=== PATIENT | male | born 1950 | race Caucasian/White ===

== ENCOUNTER 2021-12-31 10:03 | Observation (INO) ==
--- NOTE | 2021-12-04 11:23 | PAT Medication Instructions ---
Medication Instructions Date of Service December 04, 2021 Home Medications aspirin 81 mg tablet,delayed release 81 mg PO QPM chlorpheniramine maleate 4 mg tablet 4 mg PO QAM coQ10 (ubiquinol) 100 mg capsule 100 mg PO QPM duloxetine 30 mg capsule,delayed release sprinkle 30 mg PO QPM duloxetine 30 mg capsule,delayed release sprinkle 60 mg PO QAM ezetimibe 10 mg tablet 5 mg PO QPM ferrous sulfate 325 mg (65 mg iron) tablet 325 mg PO QAM gabapentin 300 mg tablet 300 mg PO QAM gabapentin 300 mg tablet 600 mg PO HS hydroxyzine HCl 50 mg tablet 50 mg PO HS metoprolol succinate 25 mg tablet,extended release 24 hr 25 mg PO QPM nitroglycerin 0.4 mg sublingual tablet (Nitrostat) 0.4 mg SUBLINGUAL UD PRN omeprazole 20 mg tablet,delayed release 20 mg PO QAM rosuvastatin 20 mg sprinkle capsule 20 mg PO QPM tamsulosin 0.4 mg capsule 0.4 mg PO HS Continue as directed nitroglycerin 0.4 mg sublingual tablet (Nitrostat) 0.4 mg SUBLINGUAL UD PRN (if needed) STOP taking 2 weeks before surgery (or as soon as possible if surgery is within 2 weeks) coQ10 (ubiquinol) 100 mg capsule 100 mg PO QPM DO NOT take the morning of surgery ferrous sulfate 325 mg (65 mg iron) tablet 325 mg PO QAM chlorpheniramine maleate 4 mg tablet 4 mg PO QAM Take morning of surgery With a small sip of water, OTHERWISE NOTHING TO EAT OR DRINK AFTER MIDNIGHT: duloxetine 30 mg capsule,delayed release sprinkle 60 mg PO QAM gabapentin 300 mg tablet 300 mg PO QAM omeprazole 20 mg tablet,delayed release 20 mg PO QAM Take evening before surgery aspirin 81 mg tablet,delayed release 81 mg PO QPM (continue as normal unless told otherwise by surgeon) duloxetine 30 mg capsule,delayed release sprinkle 30 mg PO QPM ezetimibe 10 mg tablet 5 mg PO QPM gabapentin 300 mg tablet 600 mg PO HS hydroxyzine HCl 50 mg tablet 50 mg PO HS metoprolol succinate 25 mg tablet,extended release 24 hr 25 mg PO QPM rosuvastatin 20 mg sprinkle capsule 20 mg PO QPM tamsulosin 0.4 mg capsule 0.4 mg PO HS Other Notes If you have any questions please call us at [phone] or [phone] or [phone] or [phone]
--- NOTE | 2021-12-10 11:41 | Anesthesiology Consultation ---
Date of Service December 10, 2021 Assessment & Plan (1) Encounter for pre-operative examination: - will attempt to obtain most recent cardiology note. - check BSG am DOS. - preop A1c 6.8%, testing to be faxed to PCP for continuity of care. - COVID screening: Per assessment on 12/10/2021: Travel screen negative, no known COVID-19 positive contacts or current COVID-19 related symptoms in past 2 weeks. Pt vaccinated. Surgeon arranging preop COVID testing, scheduled 12/27/2021. Awaiting results. Chart Review Chart Review: Pending: Refer to Additional Notes / Consult section and Patient seen in Pre Admission Testing Teaching & Discussion Pre-Anesthesia Teaching/Discussion Notes: Instructed NPO after midnight before surgery, except medications with 15 cc of water. Medication instructions provided according to the PAT guidelines. History Surgery Operation Date: 12/31/21 09:55 Proposed Procedures p Left Total Knee Arthroplasty - Dedrick Marie DO Height/Weight Height: 6 ft 2 in Weight: 116.7 kg Allergies Allergy/AdvReac Type Severity Reaction Status Date / Time codeine Allergy Intermediate Vomiting Verified 12/03/21 14:04 prazosin AdvReac Unknown DIZZY Verified 12/03/21 14:04 Medications Home Medications Medication Instructions Recorded Confirmed Last Taken aspirin 81 mg tablet,delayed 81 mg PO QPM 12/03/21 12/03/21 Unknown release chlorpheniramine maleate 4 mg 4 mg PO QAM 12/03/21 12/03/21 Unknown tablet coQ10 (ubiquinol) 100 mg capsule 100 mg PO QPM 12/03/21 12/03/21 Unknown duloxetine 30 mg capsule,delayed 30 mg PO QPM 12/03/21 12/03/21 Unknown release sprinkle duloxetine 30 mg capsule,delayed 60 mg PO QAM 12/03/21 12/03/21 Unknown release sprinkle ezetimibe 10 mg tablet 5 mg PO QPM 12/03/21 12/03/21 Unknown ferrous sulfate 325 mg (65 mg 325 mg PO QAM 12/03/21 12/03/21 Unknown iron) tablet gabapentin 300 mg tablet 300 mg PO QAM 12/03/21 12/03/21 Unknown gabapentin 300 mg tablet 600 mg PO HS 12/03/21 12/03/21 Unknown hydroxyzine HCl 50 mg tablet 50 mg PO HS 12/03/21 12/03/21 Unknown metoprolol succinate 25 mg 25 mg PO QPM 12/03/21 12/03/21 Unknown tablet,extended release 24 hr nitroglycerin 0.4 mg sublingual 0.4 mg SUBLINGUAL UD PRN 12/03/21 12/03/21 Unknown tablet (Nitrostat) omeprazole 20 mg tablet,delayed 20 mg PO QAM 12/03/21 12/03/21 Unknown release rosuvastatin 20 mg sprinkle capsule 20 mg PO QPM 12/03/21 12/03/21 Unknown tamsulosin 0.4 mg capsule 0.4 mg PO HS 12/03/21 12/03/21 Unknown Past Medical History Medical History (Updated 12/10/21 @ 15:43 by Lisa Mcleod PA-C) Anxiety CAD (coronary artery disease) s/p 2 stents, LAD and Cx, 2016; residual disease: LAD= eccentric 30% stenosis proximal segment. Moderately calcified 100% stenosis mid segment, no perfusion Thomas flow. Long, eccentric and serial 80% stenosis in proximal segment of 1st diagonal LAD Circumflex = diffusely diseased, eccentric and tubular 20% in the ostial segment RCA = eccentric and tubular 75% stenosis proximal segment. Diffuse and eccentric 30% stenosis mid segment of RCA. Tubular and eccentric 40% stenosis distal RCA. LM normal. Chronic kidney disease STAGE 2A-F/U PCP Depression Diverticular disease denies h/o diverticulitis Elevated hemoglobin A1c A1c 6.8% pre-op GERD (gastroesophageal reflux disease) controlled, stable per pt Heart failure EF 35-40% 01/04/17 echo Hypertension controlled, stable per pt Myocardial Infarction 12/2016 OCD (obsessive compulsive disorder) Post traumatic stress disorder Postoperative nausea and vomiting Sleep apnea CPAP-compliant Patient denies h/o stroke, seizures, heart failure, blood clots or blood transfusions. Exercise / Class Metabolic Activity II 4-5 Yardwork/Stairs/Walk up hill (denies CP or SOB with 1 FOS) Past Family History Family History Brother Family history of diabetes mellitus Past Surgical History Surgical History (Updated 12/10/21 @ 15:39 by Lisa Mcleod PA-C) Cancer EXCISION OF BCC AND SQUAMOUS CELL-LEFT EAR, R WRIST,ARM Cancer EXCISION OF MELANOMA BACK OF NECK H/O left knee surgery lateral meniscectomy H/O right wrist surgery FUSION History of anesthesia reaction WITH LAST BACK SURGERY-06/2021-GROGGY FOR 4 DAYS-"DIDN'T WANT TO WAKE UP, THEY KEPT TRYING TO GET ME TO GET AWAKE"-[facility] History of back surgery X 3 INCLUDING LAMINECTOMY History of cardiac cath 12/31/16: LM = angiographically normal LAD= eccentric 30% stenosis proximal segment. Moderately calcified 100% stenosis mid segment, no perfusion Thomas flow. Long, eccentric and serial 80% stenosis in proximal segment of 1st diagonal LAD Circumflex = diffusely diseased, eccentric and tubular 20% in the ostial segment RCA = eccentric and tubular 75% stenosis proximal segment. Diffuse and eccentric 30% stenosis mid segment of RCA. Tubular and eccentric 40% stenosis distal RCA Summary: Successful one vessel stenting of the LAD and diagonal branch History of cataract surgery R/L History of colonoscopy MULTIPLE-WITH POLYPECTOMY History of esophagogastroduodenoscopy (EGD) History of herniorrhaphy UMBILICAL History of mastectomy BILAT, hx gynecomastia History of shoulder surgery R-distal clavicle/L-bone spur History of surgery urethroplasty d/t stricture Nausea and vomiting after administration of anesthetic agent Past Anesthesia History No Family Hx of Anesthesia Complications and Other (slow to wake) History of PONV No Hx of Motion Sickness and History of PONV (denies needing scop patch) Social History Smoking Status: Never smoker Do You Dip or Chew Tobacco: No Hx Alcohol Use: Yes alcohol intake frequency: holidays/special occasions only Hx Substance Use: No Review of Systems Patient denies chest pain, shortness of breath, dyspnea on exertion, fever, chills, cough, wheezing, or palpitations. Physical Exam Vital Signs Vitals BP 118/72 P 88 TEMP 98.6 SP02 99% on RA RESP 17 Physical Full cervical extension range of motion without pain TMD 3 finger breadths Mallampati Score 2 Dentition: intact, several missing teeth, several caps/crowns-front upper, bridge lower left side; denies chipped or loose teeth, implants Lungs: normal respiratory effort. Clear throughout to auscultation, no adventitious breath sounds Cardiac: regular rate and rhythm, no murmurs noted Carotid arteries: negative bruit bilat Lab Results Anesthesia Preop Results Results Anesthesia Widget: WBC 9.52 K/uL (4.8-10.8) 12/10/21 Hgb 13.0 g/dL (14.0-18.0) L 12/10/21 Hct 41.0 % (42-52) L 12/10/21 Plt 275 K/uL (130-400) 12/10/21 Na 138 mmol/L (136-145) 12/10/21 K 4.2 mmol/L (3.5-5.1) 12/10/21 Cl 103 mmol/L (98-107) 12/10/21 CO2 27 mmol/L (21-32) 12/10/21 BUN 22 mg/dl (6-23) 12/10/21 Creat 1.40 mg/dl (0.6-1.4) 12/10/21 Glucose Level 165 mg/dl (70-99(Fasting)) H 12/10/21 PT 10.2 Seconds (9.0-12.0) 12/10/21 PTT 25.2 Seconds (21.0-31.0) 12/10/21 INR 1.0 (0.9-1.1) 12/10/21 HA1c 6.8 % (4.5-5.6) H 12/10/21 Urine Color Yellow 12/10/21 Urine Appearance Clear (Clear) 12/10/21 Urine pH 5.5 (4.5-7.5) 12/10/21 Urine Specific [place] 1.026 (1.000-1.030) 12/10/21 Urine Protein 1+ (Negative) H 12/10/21 Urine Glucose (UA) Negative (Negative) 12/10/21 Urine Ketones Trace (Negative) H 12/10/21 Urine Blood Negative (Negative) 12/10/21 Urine Nitrite Negative (Negative) 12/10/21 Urine Bilirubin Negative (Negative) 12/10/21 Urine Urobilinogen Negative (Negative) 12/10/21 Urine Leukocyte Esterase Trace (Negative) H 12/10/21 Urine WBC (Auto) 10-30 /hpf (0-5) H 12/10/21 Urine RBC (Auto) 5-10 /hpf (0-4) H 12/10/21 Urine Hyaline Casts (Auto) 1-5 /lpf (0-5) 12/10/21 Urine Epithelial Cells (Auto) 10-20 /lpf (0-5) H 12/10/21 Urine Bacteria (Auto) Negative (Negative) 12/10/21 Blood Type A Positive 12/10/21 Antibody Screen NEGATIVE 12/10/21 Testing Electrocardiogram Date: 12/10/21 NSR, rate 85 bpm Septal infarct, age undetermined Nonspecific T wave abnormality 11/20/21 EKG NSR, rate 94 bpm Septal infarct (cited on or before 11/20/21) Prolonged QT (QT/QTc: 418/522) Chest X-Ray Date: 12/10/21 PA and lateral chest radiographs are obtained. No prior studies are available for comparison at the time of dictation. The top normal for projection noting atherosclerotic calcification of the thoracic aorta. There is mild elevation of the right hemidiaphragm and bibasilar atelectasis. A calcified granuloma is noted at the right apex. The lungs and pleural spaces are otherwise clear. There is no pneumothorax. The skeletal structures are osteopenic. The bony thorax appears intact. IMPRESSION: No active disease in the chest. Echocardiogram Date: 01/04/17 EF 35-40% Large apical area of LV hypokinesis with an akinetic true apex No significant aortic valve and mitral valve dysfunction Stress Test Date: 02/11/17 Exercise MPHR > 85% METS 4 EKG stress test negative for ischemia Old anterior [place] Severely decreased functional capacity with exercise time Cardiac Catheterization Date: 12/31/16 LM = angiographically normal LAD= eccentric 30% stenosis proximal segment. Moderately calcified 100% stenosis mid segment, no perfusion Thomas flow. Long, eccentric and serial 80% stenosis in proximal segment of 1st diagonal LAD Circumflex = diffusely diseased, eccentric and tubular 20% in the ostial segment RCA = eccentric and tubular 75% stenosis proximal segment. Diffuse and eccentric 30% stenosis mid segment of RCA. Tubular and eccentric 40% stenosis distal RCA Summary: Successful one vessel stenting of the LAD and diagonal branch
--- NOTE | 2021-12-10 13:32 | History & Physical Report ---
Date of Service December 10, 2021 date of surgery: 12/31/21 Procedure: Left Total Knee Arthroplasty Surgeon: Dedrick Marie Assessment & Plan (1) Arthritis of knee, left: Plan: Risks and benefits of procedure discussed in detail today, patient would like to proceed with a left total knee replacement at [facility] as scheduled. will obtain medical clearance from Dr Lemus prior to surgery as well as obtain PATs at [facility]. Will place on ASA 81mg po bid x 1 month post op, f/u 2 weeks post op for routine post-operative care and x-ray, sooner if having any problems. will make arrangements for HHPT at the time of discharge. At this point in time, has failed conservative measures and would like to proceed with surgical intervention. He states he is able to take Oxycodone as well. The risks and benefits have been discussed including, but not limited to, risk of infection, nerve injury, stiffness, loss of motion, failure to improve, etc. Reasonable outcomes and options of treatment were discussed. An explanation of appropriate alternatives to the procedure that may be advantageous were discussed and their risks and benefits, as well as the risks and benefits of not proceeding with treatment. I offered to answer any additional inquiries co ncerning the treatment involved. All the patient's questions were answered. The patient is agreeable, understanding of the treatment plan and alternatives, and wishes to proceed with the treatment plan. History of Present Illness Chief Complaint: left knee pain Primary Care Provider: Devynestevan Rolnost Osborne is a 71 year old male who complains of left knee pain, presents for pre- op evaluation prior to a left total knee replacement by Dr Marie at [facility]. He complains of pain decreased range of motion and stiffness in the left knee. Currently the patient states that the symptoms are moderate-severe and is described as aching, sharp and throbbing. His symptoms are aggravated by ascending stairs, daily activities, first steps while awake walking. Prior NSAIDs include IBU and Aleve. he has been treated with previous cortisone and visco injections in the past without much relief. he had prior meniscectomy over 30 years ago as well. Allergies Allergy/AdvReac Type Severity Reaction Status Date / Time codeine Allergy Intermediate Vomiting Verified 12/03/21 14:04 prazosin AdvReac Unknown DIZZY Verified 12/03/21 14:04 Home Medications Medication Instructions Recorded Confirmed Type aspirin 81 mg tablet,delayed 81 mg PO QPM 12/03/21 12/03/21 History release chlorpheniramine maleate 4 mg 4 mg PO QAM 12/03/21 12/03/21 History tablet coQ10 (ubiquinol) 100 mg capsule 100 mg PO QPM 12/03/21 12/03/21 History duloxetine 30 mg capsule,delayed 30 mg PO QPM 12/03/21 12/03/21 History release sprinkle duloxetine 30 mg capsule,delayed 60 mg PO QAM 12/03/21 12/03/21 History release sprinkle ezetimibe 10 mg tablet 5 mg PO QPM 12/03/21 12/03/21 History ferrous sulfate 325 mg (65 mg 325 mg PO QAM 12/03/21 12/03/21 History iron) tablet gabapentin 300 mg tablet 300 mg PO QAM 12/03/21 12/03/21 History gabapentin 300 mg tablet 600 mg PO HS 12/03/21 12/03/21 History hydroxyzine HCl 50 mg tablet 50 mg PO HS 12/03/21 12/03/21 History metoprolol succinate 25 mg 25 mg PO QPM 12/03/21 12/03/21 History tablet,extended release 24 hr nitroglycerin 0.4 mg sublingual 0.4 mg SUBLINGUAL UD PRN 12/03/21 12/03/21 History tablet (Nitrostat) omeprazole 20 mg tablet,delayed 20 mg PO QAM 12/03/21 12/03/21 History release rosuvastatin 20 mg sprinkle capsule 20 mg PO QPM 12/03/21 12/03/21 History tamsulosin 0.4 mg capsule 0.4 mg PO HS 12/03/21 12/03/21 History Past Med/Surg History Medical History Anxiety CAD (coronary artery disease) s/p 2 stents 2016 Chronic kidney disease STAGE 2A-F/U PCP Depression Diverticular disease denies h/o diverticulitis GERD (gastroesophageal reflux disease) controlled, stable per pt Hypertension controlled, stable per pt Myocardial Infarction 12/2016 OCD (obsessive compulsive disorder) Post traumatic stress disorder Postoperative nausea and vomiting Sleep apnea CPAP-compliant Surgical History Cancer EXCISION OF BCC AND SQUAMOUS CELL-LEFT EAR, R WRIST,ARM Cancer EXCISION OF MELANOMA BACK OF NECK H/O left knee surgery lateral meniscectomy H/O right wrist surgery FUSION History of anesthesia reaction WITH LAST BACK SURGERY-06/2021-GROGGY FOR 4 DAYS-"DIDN'T WANT TO WAKE UP, THEY KEPT TRYING TO GET ME TO GET AWAKE"-[facility] History of back surgery X 3 INCLUDING LAMINECTOMY History of cardiac cath 12/2016 2 STENTS [facility] History of cataract surgery R/L History of colonoscopy MULTIPLE-WITH POLYPECTOMY History of esophagogastroduodenoscopy (EGD) History of herniorrhaphy UMBILICAL History of mastectomy BILAT, hx gynecomastia History of shoulder surgery R-distal clavicle/L-bone spur History of surgery urethroplasty d/t stricture Nausea and vomiting after administration of anesthetic agent Family History Brother Family history of diabetes mellitus Social History Smoking Status: Never smoker Second Hand Exposure: Yes ( A CHILD); Hx Alcohol Use: Yes Hx Substance Use: No Preferred Language: Telugu Communication Ability: Effective Warehouse Loader Required: No Beliefs That Will Affect Care: Anabaptism Anabaptism Beliefs: HOLINESS Current Living Situation: Spouse current occupational status: retired Feels Safe at Home: Yes Assistive Devices: Glasses Review of Systems Review of Systems: All systems reviewed & are unremarkable except as noted in HPI & below Constitutional: no fever, no chills and no sweats Respiratory: no cough and no dyspnea Cardiovascular: no chest pain, no dyspnea and no orthopnea Gastrointestinal: no abdominal pain, no nausea and no vomiting Musculoskeletal: as per Subjective / HPI Physical Exam Physical Exam: HT: 6ft 2in WT: 116.7kg Constitutional: WD/WN, vitals as above no acute distress Respiratory: normal respiratory effort, lungs clear to auscultation no respiratory distress, no labored breathing and does not use accessory muscles Cardiovascular: RRR, no murmur, no edema Gastrointestinal (Abdomen): normal bowel sounds, soft, nontender, no hepatosplenomegaly Musculoskeletal: Knee: + knee abnormal to inspection (LEFT KNEE: ), + effusion (+1 effusion), + limited ROM of knee (ROM 0/3/110), + knee ROM with crepitation, + joint line tenderness (medial joint line) and + Ronel's sign positive; no deformity, no skin erythema, no ecchymosis, no valgus laxity, no varus laxity, anterior drawer test negative, Rakesh's sign negative and pivot shift test negative Results & Data Results & Data ([facility]) Diagnostic Findings Left Knee X-ray: left knee series confirm advanced degenerative changes to the left knee, greatest medial compartments and patellofemoral joint, showing joint space narrowing, osteophyte formation and subchondral sclerosis. no acute bony pathology noted.
[~2021-12-31 10:03] MED LIST: ACETAMINOPHEN 500 MG TAB PO SCH; BUPIVACAINE 0.5 % 5 MG/1 ML PF 10ML VIAL ONE; CeleBREX 200 MG CAP PO SCH; EPINEPHrine INJ 1 MG/ML AMP ONE; FAMOTIDINE 20 MG TAB PO SCH; GABAPENTIN 300 MG CAP PO SCH; LR 15ML/HR IV SCH; METOCLOPRAMIDE HCL 10 MG TABLET PO SCH; ROPIVACAINE 0.5% 5 MG/ML 30 ML VIAL ONE; ROPIVACAINE 0.5% HCL/PF 150 MG, BUPIVACAINE 0.75% MPF 20 ML, EPINEPHrine 30MG/30ML (OR ... INFIL SCH; TRANEXAMIC ACID 1,000 MG **IV Intra-op IV SCH; TRANEXAMIC ACID 1,000 MG **IV Pre-op IV SCH; ceFAZolin 2000MG 2,000 MG/15 ML SYR IV SCH
[2021-12-31] MEDS ORDERED: PHENYLEPHRINE 100MCG/ML 5ML SYR IV PRN (10:51)
[2021-12-31] MEDS ORDERED: ATROPINE SULFATE 0.1 MG/ML 10ML SYR IV PRN (10:51)
[2021-12-31] MEDS ORDERED: ePHEDrine sulfate 50 MG/ML AMP IV PRN (10:51)
[2021-12-31] MEDS ORDERED: LABETALOL HCL IV 5 MG/ML 20ML IV PRN (10:51)
[2021-12-31] MEDS ORDERED: fentaNYL citrate 100 MCG/2 ML VIAL IV PRN (10:51)
[2021-12-31] MEDS ORDERED: ONDANSETRON INJ 2 MG/ML 2 ML VIAL IV PRN ×2 (10:51→17:40)
--- NOTE | 2021-12-31 11:21 | History & Physical Bridge Note ---
Date of Service December 31, 2021 History & Physical Bridge Note I have examined the patient, reviewed the History & Physical and in the interval since the performance of the History & Physical I have noted the following changes of clinical significance: no changes noted
[2021-12-31] MEDS ORDERED: TRANEXAMIC ACID / 0.7% NACL 1000MG/100ML BAG IV ONE (11:49)
[2021-12-31] MEDS ORDERED: TRANEXAMIC ACID 100 MG/ML 10 ML VIAL IV ONE (13:00)
[2021-12-31] MEDS ORDERED: PROPOFOL IV EMULSION 10 MG/ML 20 ML VIAL IV ONE (13:18)
[2021-12-31] MEDS ORDERED: MIDAZOLAM HCL 1 MG/ML 2ML VIAL ONE (13:18)
[2021-12-31] MEDS ORDERED: fentaNYL citrate 100 MCG/2 ML VIAL ONE (13:18)
[2021-12-31] MEDS ORDERED: LIDOCAINE 2% MPF LOCAL 5 ML VIAL INFIL ONE (13:18)
[2021-12-31] MEDS ORDERED: ORTHO JOINT ANESTHETIC ONE (13:25)
[2021-12-31] MEDS ORDERED: PHENYLEPHRINE 100MCG/ML 5ML SYR ONE (14:19)
--- NOTE | 2021-12-31 15:16 | Operative Report ---
Post Operative Report Pre & Post Diagnosis Operation Date: 12/31/21 13:05 Pre-Op Diagnosis: Osteoarthritis of Left Knee Post-Op Diagnosis: Osteoarthritis of Left Knee I identified the patient and participated in the time-out.: Yes Procedure Operation Date: 12/31/21 13:05 Actual Procedures p Left Total Knee Arthroplasty(Left) utilizing [employer] by [employer] journey 2 patient matched total knee arthroplasty size femur 7 tibia 7 polytwelve patella 35 oval- Dedrick Marie DO Surgeon Dedrick Marie DO Teletype Installer KANDICE Truong Estimated Blood Loss 5 Findings Consistent with Post-Op Diagnosis Patient resents severe stage tricompartmental DJD with varus alignment subchondral sclerosis marginal osteophytes subchondral cystic changes Specimens Bone and cartilage Drains Medium bore Hemovac Anesthesia Type MAC Spinal Regional Complications none Disposition Accompanied Patient To Recovery: No Disposition: Recovery Room Indications Patient presents with severe end-stage DJD after failed attempted conservative management clinic physical therapy anti-inflammatories relative rest activity modification corticosteroid injection viscosupplementation Description of Procedure After proper prepping and draping of the left lower extremity anterior midline incision was made over the region of the extensor extensor mechanism after meticulous hemostasis was obtained and maintained in subcutaneous tissues a medial parapatellar incision was made The patella was subluxed lateralward the medial lateral gutter were cleaned from any hypertrophic synovitis and scar tissue of the distal femoral block was placed and the distal femoral osteotomy cut was made subsequently the chamfers anterior and posterior osteotomy cuts were made utilizing the 4-in-1 block the tibia was subsequently subluxed anteriorward medial and ateral meniscal remnants were excised in their entirety remnants of the anterior and posterior cruciate ligaments were excised in their entirety excellent exposure of the proximal tibia was obtained the tibial osteotomy guide was placed on the proximal tibial osteotomy cut was made once again the knee was irrigated with copious amounts of sterile saline solution the patella was subsequently everted lateralward thickened scar tissue around the patella was removed the patella was subsequently cut utilizing a freehand technique and was drilled prepared for final preparation and placement of patella socially flexion-extension gaps were checked and the equal and symmetric trials were placed to the appropriate femoral and tibial trials with poly-spacer being placed for equal flexion and extension gaps and full range of motion including extension to 0 and flexion to 140 the trial components after having been taken to recovery range of motion was subsequently removed meticulous hemostasis was obtained and maintained subsequently a knee block injection of joint cocktail including ropivacaine 0.5% 150 mg. Bupivacaine 0.5% epinephrine 1-200,030 mL's toradol 30 mg dexamethasone 4 mg ketamine 10 mg clonidine 100 micrograms normal saline solution 30 mg was infiltrated into the soft tissues of the posterior knee medial lateral gutters and periosteal synovium special attention was paid to protect neurovascular structures at all times subsequently trial components having been removed the knee was irrigated with sterile saline solution. debris was removed the proximal tibia was subsequently prepared and was made ready for the placement of the tibial component tibial component was also cemented and tamped into position the femoral component was subsequently placed and cemented in the position the patellar component was subsequently cemented in position because hemostasis once again obtained and maintained wound having been thoroughly irrigated with debridement and debridement lavage was performed as well as a medial parapatellar incision closed with #1 Vicryl in interrupted fashion subcutaneous was closed with #2 Vicryl skin was closed with skin clips. PA-C was necessary for prepping and drapping as well as wound closure of deep fascia Sub cutaneous tissue and skin and was necessary for the case. A sterile compressive dressing was placed patient was taken to recovery in stable condition of report dictated by Frank I attest to the content of the Intraoperative Record and any orders documented therein. Any exceptions are noted below.Due to the complex nature of the procedure, the entire surgery was performed with the operational assistance of KANDICE Truong. The academic assistant, under direct supervision, was involved in the actual performance of all aspects of the surgical procedure including hemostasis, tissue retraction and incision, instrument management, patient positioning, and wound closure. I attest to the content of the Intraoperative Record and any orders documented therein. Any exceptions are noted below.
[2021-12-31] MEDS ORDERED: ePHEDrine sulfate 50 MG/ML SYR ONE (15:23)
--- NOTE | 2021-12-31 16:12 | XRay Report ---
XR knee LT 1 or 2V routine CLINICAL HISTORY: Postoperative evaluation. COMPARISON: None FINDINGS: Alignment of the total left knee arthroplasty is anatomic. There is no periprosthetic frac ture or unexpected radiopaque body. Skin heather and drains are in place. IMPRESSION: Expected findings following total left knee arthroplasty. ACT 112: Negative or not required by law. Electronically signed by: Blu Ladd M.D. 12/31/2021 4:11 PM
--- NOTE | 2021-12-31 17:17 | Anesthesiology Progress Note ---
Date of Service December 31, 2021 Anesthesia Post Procedure Vital Signs Vital Signs: Temp Pulse Resp BP BP Pulse Ox O2 Del Method 12/31/21 17:05 71 18 138/60 95 Room Air 12/31/21 16:25 73 15 133/74 93 Room Air 12/31/21 16:55 72 20 133/68 94 Room Air 12/31/21 16:45 97.7 F 76 18 127/79 93 Room Air 12/31/21 16:35 76 22 134/68 95 Room Air 12/31/21 16:15 73 14 141/66 H 93 Room Air 12/31/21 16:05 74 17 140/63 95 Room Air 12/31/21 15:55 74 16 131/73 99 Room Air 12/31/21 15:47 97.0 F L 76 15 135/69 99 Room Air 12/31/21 10:46 98.4 F 78 20 152/84 H 97 Room Air Pain Intensity Left Knee: Pain Intensity: 0 Transfer of Care Handoff Completed per policy Notes Mental Status: alert / awake / arousable and participated in evaluation Patient Amnestic to Procedure: Yes Nausea / Vomiting: adequately controlled Pain: adequately controlled Airway Patency, RR, SpO2: stable & adequate BP & HR: stable & adequate Hydration State: stable & adequate Neuraxial Anesthesia: was administered and sensory block is resolving Anesthetic Complications: no major complications apparent and Pt Satisfied with anesthetic care
[2021-12-31] MEDS ORDERED: bisacodyL 10 MG SUPP PR PRN (17:40)
[2021-12-31] MEDS ORDERED: NITROGLYCERIN SL 0.4 MG/TAB TAB SL PRN (17:40)
[2021-12-31] MEDS ORDERED: diphenhydrAMINE Capsule 25 MG CAP PO PRN (17:40)
[2021-12-31] MEDS ORDERED: NALOXONE HCL 0.4 MG/1 ML VIAL/CARP IV PRN (17:40)
[2021-12-31] MEDS ORDERED: METOCLOPRAMIDE HCL INJ 5 MG/ML 2 ML VIAL IV PRN (17:40)
[2021-12-31] MEDS ORDERED: SODIUM CHLORIDE 0.9% 1000ML 1,000 ML IV SCH (17:40)
[2021-12-31] MEDS ORDERED: oxyCODONE HCL IR 5 MG TAB (IMMEDIATE RELEASE) PO PRN (17:40)
[2021-12-31] MEDS ORDERED: MAGNESIUM HYDROXIDE SUSP 30 ML UDC PO PRN (17:40)
[2021-12-31] MEDS ORDERED: HYDROmorphone INJ 1 MG/ML SYRINGE IV PRN (17:40)
[2021-12-31] MEDS ORDERED: FERROUS SULFATE 325 MG TAB PO SCH (18:00)
[2021-12-31] MEDS: KETOROLAC TROMETHAMINE 15 MG/ML VIAL IV SCH ×2 (18:24→22:29)
--- NOTE | 2021-12-31 19:59 | Hospitalist Consultation ---
Date of Consultation December 31, 2021 Assessment & Plan (1) Arthritis of knee, left: S/p left TKA with Dr. Marie on 12/31. No complications noted in the operative report. EBL was 5 mL. - Post-operative care per primary team - DVT ppx: ASA 81 mg PO BID - At risk for expected blood loss anemia - Can give PRBCs or Venofer as indicated. (2) CAD (coronary artery disease): Hx of LHC and stents. No chest pain at present. - Continue ASA as above - Continue beta-india, statin (3) Heart failure: Chronic systolic heart failure with EF 35 - 40% on echo in 12/2016 after an anterior TX. No further echos in our system, but patient reports most recent echo had EF of ~60%. - Will stop IV fluids to avoid volume overload - Closely monitor volume status of patient - Low threshold to give a few doses of Lasix if needed - Meds as above (4) Hypertension: BP is 130/75. - Continue above meds (5) Sleep apnea: Brought own CPAP while in the hospital. (6) Depression: - Continue home duloxetine, hydroxyzine (7) BPH (benign prostatic hyperplasia): - Continue home tamsulosin - Monitor PVRs if needed History of Present Illness Attending Physician: Dedrick Marie, DO History of Present Illness 71yo M w/ hx of depression and HLD who presents as a routine consult for medical management after a left TKA with Dr. Marie on 12/31. Overall, patient had ongoing left knee pain that was not responding to conservative therapy. Patient seen after surgery. No major issues. Block is still in effect, so he is not having any significant knee pain at this time. Breathing comfortably. Allergies Allergy/AdvReac Type Severity Reaction Status Date / Time codeine Allergy Intermediate Vomiting Verified 12/31/21 10:51 prazosin AdvReac Unknown DIZZY Verified 12/31/21 10:51 Home Medications Medication Instructions Recorded Confirmed Type aspirin 81 mg tablet,delayed 81 mg PO QPM 12/03/21 12/31/21 History release chlorpheniramine maleate 4 mg 4 mg PO QPM 12/03/21 12/31/21 History tablet coQ10 (ubiquinol) 100 mg capsule 100 mg PO QPM 12/03/21 12/31/21 History duloxetine 30 mg capsule,delayed 30 mg PO QPM 12/03/21 12/31/21 History release sprinkle duloxetine 30 mg capsule,delayed 60 mg PO QAM 12/03/21 12/31/21 History release sprinkle ezetimibe 10 mg tablet 5 mg PO QPM 12/03/21 12/31/21 History ferrous sulfate 325 mg (65 mg 325 mg PO Q3D 12/03/21 12/31/21 History iron) tablet gabapentin 300 mg tablet 300 mg PO QAM 12/03/21 12/31/21 History gabapentin 300 mg tablet 600 mg PO HS 12/03/21 12/31/21 History hydroxyzine HCl 50 mg tablet 50 mg PO HS 12/03/21 12/31/21 History metoprolol succinate 25 mg 25 mg PO QPM 12/03/21 12/31/21 History tablet,extended release 24 hr nitroglycerin 0.4 mg sublingual 0.4 mg sublingual UD PRN Chest Pain 12/03/21 12/31/21 History tablet (Nitrostat) omeprazole 20 mg tablet,delayed 20 mg PO QAM 12/03/21 12/31/21 History release rosuvastatin 20 mg sprinkle capsule 20 mg PO QPM 12/03/21 12/31/21 History tamsulosin 0.4 mg capsule 0.4 mg PO HS 12/03/21 12/31/21 History Patient History Medical History (Updated 12/31/21 @ 19:58 by David Koehler MD) Anxiety CAD (coronary artery disease) s/p 2 stents, LAD and Cx, 2016; residual disease: LAD= eccentric 30% stenosis proximal segment. Moderately calcified 100% stenosis mid segment, no perfusion Thomas flow. Long, eccentric and serial 80% stenosis in proximal segment of 1st diagonal LAD Circumflex = diffusely diseased, eccentric and tubular 20% in the ostial segment RCA = eccentric and tubular 75% stenosis proximal segment. Diffuse and eccentric 30% stenosis mid segment of RCA. Tubular and eccentric 40% stenosis distal RCA. LM normal. Chronic kidney disease STAGE 2A-F/U PCP Depression Diverticular disease denies h/o diverticulitis Elevated hemoglobin A1c A1c 6.8% pre-op GERD (gastroesophageal reflux disease) controlled, stable per pt Heart failure EF 35-40% 01/04/17 echo Hypertension controlled, stable per pt Myocardial Infarction 12/2016 Obesity OCD (obsessive compulsive disorder) Post traumatic stress disorder Postoperative nausea and vomiting Refusal of blood transfusions as patient is Islam Sleep apnea CPAP-compliant Surgical History Cancer EXCISION OF BCC AND SQUAMOUS CELL-LEFT EAR, R WRIST,ARM Cancer EXCISION OF MELANOMA BACK OF NECK H/O left knee surgery lateral meniscectomy H/O right wrist surgery FUSION History of anesthesia reaction WITH LAST BACK SURGERY-06/2021-GROGGY FOR 4 DAYS-"DIDN'T WANT TO WAKE UP, THEY KEPT TRYING TO GET ME TO GET AWAKE"-[facility] History of back surgery X 3 INCLUDING LAMINECTOMY History of cardiac cath 12/31/16: LM = angiographically normal LAD= eccentric 30% stenosis proximal segment. Moderately calcified 100% stenosis mid segment, no perfusion Thomas flow. Long, eccentric and serial 80% stenosis in proximal segment of 1st diagonal LAD Circumflex = diffusely diseased, eccentric and tubular 20% in the ostial segment RCA = eccentric and tubular 75% stenosis proximal segment. Diffuse and eccentric 30% stenosis mid segment of RCA. Tubular and eccentric 40% stenosis distal RCA Summary: Successful one vessel stenting of the LAD and diagonal branch History of cataract surgery R/L History of colonoscopy MULTIPLE-WITH POLYPECTOMY History of esophagogastroduodenoscopy (EGD) History of herniorrhaphy UMBILICAL History of mastectomy BILAT, hx gynecomastia History of shoulder surgery R-distal clavicle/L-bone spur History of surgery urethroplasty d/t stricture Nausea and vomiting after administration of anesthetic agent Family History Brother Family history of diabetes mellitus Social History Smoking Status: Never smoker Second Hand Exposure: Yes ( A CHILD); Do You Dip or Chew Tobacco: No; Hx Alcohol Use: Yes Hx Substance Use: No Preferred Language: Rwandan Communication Ability: Effective Rod Straightener Required: No Beliefs That Will Affect Care: Hoahaoism Hoahaoism Beliefs: ORTHODOXY Current Living Situation: Spouse current occupational status: retired Other Information That Helps Us Care for You: No Feels Safe at Home: Yes Safety Concerns: Feels Safe At This Time Assistive Devices: Glasses Review of Systems Review of Systems: All systems reviewed & are unremarkable except as noted in HPI & below Physical Exam Constitutional: WD/WN, vitals as above Eyes: EOM intact bilaterally; no conjunctival abnormality ENMT: external ear and nose normal, oropharynx normal Neck: trachea midline, no thyromegaly normal visual inspection Respiratory: normal respiratory effort, lungs clear to auscultation no respiratory distress Cardiovascular: RRR, no murmur, no edema Gastrointestinal (Abdomen): Inspection/Auscultation: abdomen normal to inspection; abdomen not distended Musculoskeletal: no cyanosis or clubbing, extremities motor strength 5/5 Left knee in bandage with drain in place with bloody drainage. LLE toes warm and well-perfused with normal light touch sensation. Skin: no rashes, warm and dry Neurologic: moves all extremities and awake Psychiatric: Orientation: alert, oriented to person and cooperative Results & Data Results & Data ([facility]) Vital Signs (Past 12 Hours) Vital Signs Temp Pulse Pulse Resp BP BP Pulse Ox 12/31/21 19:21 36.5 C 77 17 131/74 94 12/31/21 18:40 36.5 C 76 16 156/85 H 94 12/31/21 18:09 36.2 C L 67 14 130/79 95 12/31/21 17:40 36.3 C L 70 16 126/76 95 12/31/21 17:05 71 18 138/60 95 12/31/21 16:25 73 15 133/74 93 12/31/21 16:55 72 20 133/68 94 12/31/21 16:45 36.5 C 76 18 127/79 93 12/31/21 16:35 76 22 134/68 95 12/31/21 16:15 73 14 141/66 H 93 12/31/21 16:05 74 17 140/63 95 12/31/21 15:55 74 16 131/73 99 12/31/21 15:47 36.1 C L 76 15 135/69 99 12/31/21 10:46 36.9 C 78 20 152/84 H 97 O2 Del Method 12/31/21 19:21 Room Air 12/31/21 18:40 Room Air 12/31/21 18:09 Room Air 12/31/21 17:40 Room Air 12/31/21 17:05 Room Air 12/31/21 16:25 Room Air 12/31/21 16:55 Room Air 12/31/21 16:45 Room Air 12/31/21 16:35 Room Air 12/31/21 16:15 Room Air 12/31/21 16:05 Room Air 12/31/21 15:55 Room Air 12/31/21 15:47 Room Air 12/31/21 10:46 Room Air PG Care Time/CCT Total # of Minutes Spent Total Time Spent with Patient: Total time spent is greater than 50% in coordination of care (as documented) at patient's floor/unit and/or counseling patient: Coding Level of Care Code 11055 Office/OBS Consult Lvl 4 Diagnoses Arthritis of knee, left M17.12 CAD (coronary artery disease) I25.10 Heart failure I50.9 Hypertension I10 Sleep apnea G47.30 Depression F32.A BPH (benign prostatic hyperplasia) N40.0
[2021-12-31] MEDS: DOCUSATE SODIUM 100 MG CAP PO SCH (20:19)
[2021-12-31] MEDS: ASPIRIN 81 MG ECTAB PO SCH (20:19)
[2021-12-31] MEDS ORDERED: DULoxetine HCL 30 MG CAP PO SCH (21:00)
[2021-12-31] MEDS ORDERED: METOPROLOL SUCC 25MG EXT REL TAB PO SCH (21:00)
[2021-12-31] MEDS ORDERED: TAMSULOSIN HCL 0.4 MG CAP PO SCH (21:00)
[2021-12-31] MEDS ORDERED: GABAPENTIN 600 MG TAB PO SCH (21:00)
[2021-12-31] MEDS ORDERED: EZETIMIBE 10 MG TABLET PO SCH (21:00)
[2021-12-31] MEDS ORDERED: ROSUVASTATIN CALCIUM 20 MG TAB PO SCH (21:00)
[2021-12-31] MEDS ORDERED: SENNA 8.6 MG TAB PO SCH (21:00)
[2021-12-31] MEDS ORDERED: hydrOXYzine HCl 25 MG TAB PO SCH (21:00)
[2021-12-31] MEDS: ACETAMINOPHEN 500 MG TAB PO SCH (22:29)
[2021-12-31] MEDS: ceFAZolin 2000MG 2,000 MG/15 ML SYR IV SCH (22:29)
[2022-01-01] MEDS ORDERED: TRANEXAMIC ACID 100 MG/ML 10 ML VIAL IV SCH (06:00)
[2022-01-01] MEDS: KETOROLAC TROMETHAMINE 15 MG/ML VIAL IV SCH ×2 (06:30→11:34)
[2022-01-01] MEDS: ceFAZolin 2000MG 2,000 MG/15 ML SYR IV SCH (06:30)
[2022-01-01] MEDS: ACETAMINOPHEN 500 MG TAB PO SCH ×2 (06:30→15:15)
--- NOTE | 2022-01-01 07:33 | Orthopedic Progress Note ---
Date of Service January 01, 2022 Assessment & Plan (1) Arthritis of knee, left: Plan: Postop day #1 left total knee -PT/OT -A.m. labs pending -Pain management as written -DVT prophylaxis: SCDs, teds, aspirin 81 mg twice daily -Discharge planning: Plan to discharge home with home health. Plan on discharge home today as long as therapy goes well. Admission and Anticipated Discharge Date Admission Date: December 31, 2021 Subjective Patient is doing well this morning. He has little to no pain at this time. No other complaints. Denies chest pain, shortness of breath, nausea/vomiting/diarrhea, dizziness lightheadedness. Review of Systems Review of Systems: All systems reviewed & are unremarkable except as noted in Subjective Physical Exam Physical Exam: Left knee: Dressing is clean, dry, intact. Toes are mobile. No calf tenderness. Good dorsiflexion. Distally neurovascular status and sensation intact. Constitutional: WD/WN, vitals as above Results & Data ([facility]) Vital Signs (Past 12 Hours) Vital Signs Temp Pulse Resp BP Pulse Ox O2 Del Method 01/01/22 02:46 36.4 C L 70 17 116/69 94 CPAP 12/31/21 21:09 36.5 C 75 16 129/74 95 Room Air
--- NOTE | 2022-01-01 07:33 | Hospitalist Progress Note ---
Date of Service January 01, 2022 Assessment & Plan (1) Arthritis of knee, left: Plan: POD#1 S/p left TKA with Dr. Marie on 12/31. No complications noted in the operative report. EBL was 5 mL. - Post-operative care per primary team - DVT ppx: ASA 81 mg PO BID - At risk for expected blood loss anemia - Can give PRBCs or Venofer as indicated (note in system for patient jehovah witness) PT/OT consulted Labs from AM pending (2) CAD (coronary artery disease): Plan: Hx of LHC and stents. No chest pain at present. - Continue ASA as above - Continue beta-india, statin (3) Heart failure: Plan: Chronic systolic heart failure with EF 35 - 40% on echo in 12/2016 after an anterior MS. No further echos in our system, but patient reports most recent echo had EF of ~60%. - Will stop IV fluids to avoid volume overload - Closely monitor volume status of patient - Low threshold to give a few doses of Lasix if needed - Meds as above (4) Hypertension: Plan: BP is 130/75. - Continue above meds (5) Sleep apnea: Plan: Brought own CPAP while in the hospital. (6) Depression: Plan: - Continue home duloxetine, hydroxyzine (7) BPH (benign prostatic hyperplasia): Plan: - Continue home tamsulosin - Monitor PVRs if needed (8) Elevated hemoglobin A1c: Plan: reported prior elevated, pre-op a1c 6.8 technically DM Will need f/u with PCP AM glucose -- Admission and Anticipated Discharge Date Admission Date: December 31, 2021 Results & Data Results & Data ([facility]) Vital Signs (Past 12 Hours) Vital Signs Temp Pulse Resp BP Pulse Ox O2 Del Method 01/01/22 02:46 36.4 C L 70 17 116/69 94 CPAP 12/31/21 21:09 36.5 C 75 16 129/74 95 Room Air Laboratory Results 12/31/21 12/31/21 Range/Units 11:56 10:30 POC Glucose 108 H (70-99) mg/dl SARS-CoV-2, RNA, NAAT NEGATIVE (NEGATIVE) Diagnostic Findings Knee X-Ray 12/31/21 14:32 XR knee LT 1 or 2V routine CLINICAL HISTORY: Postoperative evaluation. COMPARISON: None FINDINGS: Alignment of the total left knee arthroplasty is anatomic. There is no periprosthetic fracture or unexpected radiopaque body. Skin heather and drains are in place. IMPRESSION: Expected findings following total left knee arthroplasty. ACT 112: Negative or not required by law. Electronically signed by: Blu Ladd M.D. 12/31/2021 4:11 PM PG Care Time/CCT Total # of Minutes Spent Total Time Spent with Patient: Total time spent is greater than 50% in coordination of care (as documented) at patient's floor/unit and/or counseling patient: Coding Diagnoses Arthritis of knee, left M17.12 CAD (coronary artery disease) I25.10 Heart failure I50.9 Hypertension I10 Sleep apnea G47.30 Depression F32.A BPH (benign prostatic hyperplasia) N40.0 Elevated hemoglobin A1c R73.09
[2022-01-01 08:23] LABS: Hematocrit (blood only) 36.6 % (40.1-51.0); Hemoglobin 11.6 g/dl (14.0-18.0); Mean Corpuscular Hemoglobin 28.5 pg (25.0-34.0); Mean Corpuscular Hgb Conc 31.7 g/dL (32.0-36.0); Mean Corpuscular Volume 89.9 fL (80.0-100.0); Mean Platelet Volume 10.1 fL (9.4-12.4); Platelet Count 248 K/uL (130-400); RDW Coefficient of Variation 14.3 % (11.5-14.5); RDW Standard Deviation 46.8 fL (36.4-46.3); Red Blood Count 4.07 M/uL (4.63-6.08); White Blood Count 16.26 K/ul (4.8-10.8)
[2022-01-01 08:47] LABS: BUN Creatinine Ratio 16.4 (10-20); Calcium 8.7 mg/dl (8.5-10.1); Creatinine Clr Calc Pharmacy 53.9 ml/min; Est GFR (Non-African American) 40.6 ml/min; Potassium 4.6 mmol/L (3.5-5.1)
[2022-01-01] MEDS ORDERED: DULoxetine HCL 60 MG CAP PO SCH (09:00)
[2022-01-01] MEDS ORDERED: MULTIVITAMIN TAB PO SCH (09:00)
[2022-01-01] MEDS ORDERED: GABAPENTIN 300 MG CAP PO SCH (09:00)
--- NOTE | 2022-01-01 09:19 | Communication Note ---
Date of Service: January 01, 2022 Patient without formal need for evaluation today. No pain at all, walking the halls with therapy. Knee looking good and ambulating with a walker. Blood counts on AM draw acceptable blood loss/dilutional from IVF No CP/SOB/abd pain/n/v/dysuria/lightheadedness/dizziness. He ordered extra water with his AM tray and encouraged to push oral fluids, instructed to avoid celebrex given rise in Cr from 1.4 to 1.65 but making good urine. Also messaged ortho PA to avoid celebrex. Stable for discharge from hospitalist perspective. Please reach out with any que stions/concerns.
[2022-01-01] MEDS: ASPIRIN 81 MG ECTAB PO SCH (09:37)
[2022-01-01] MEDS: DOCUSATE SODIUM 100 MG CAP PO SCH (09:37)
--- NOTE | 2022-01-01 17:57 | Discharge Summary ---
Date of Service date of discharge: January 01, 2022 date of admission: 12-31-21 Admission HPI Per Admitting Provider Dylon is a 71 year old male who complains of left knee pain, presents for pre-op evaluation prior to a left total knee replacement by Dr Marie at [facility]. He complains of pain decreased range of motion and stiffness in the left knee. Currently the patient states that the symptoms are moderate-severe and is described as aching, sharp and throbbing. His symptoms are aggravated by ascending stairs, daily activities, first steps while awake walking. Prior NSAIDs include IBU and Aleve. he has been treated with previous cortisone and visco injections in the past without much relief. he had prior meniscectomy over 30 years ago as well. Principal Diagnosis left knee arthritis Discharge Exam Musculoskeletal left knee: NVDI, calf SNT, negative francis sign. DP palpable, able to wiggle toes/ankle movement without difficulty. SUSHANT dressing clean dry and intact. expected post-operative bruising noted. Discharge Data Allergies Allergy/AdvReac Type Severity Reaction Status Date / Time codeine Allergy Intermediate Vomiting Verified 12/31/21 10:51 prazosin AdvReac Unknown DIZZY Verified 12/31/21 10:51 Consultations 12/31/21 17:40 Consult Hospitalist Routine Procedures Performed Operation Date: 12/31/21 13:05 Actual Procedures p Left Total Knee Arthroplasty(Left) - Dedrick Marie DO Ordered Studies 12/31/21 05:00 US - OR guided needle placemen Routine 12/31/21 13:46 US - OR guided needle placemen Routine Hospital Course (1) Arthritis of knee, left: Postop day #1 left total knee -PT/OT -A.m. labs pending -Pain management as written -DVT prophylaxis: SCDs, teds, aspirin 81 mg twice daily -Discharge planning: Plan to discharge home with home health. Plan on discharge home today as long as therapy goes well. Total Time Total Time Spent Total Time Spent (In Minutes): 20 Discharge Plan Discharge Items Patient Disposition: Home - Home Health Services Reason For Visit: Osteoarthritis of Left Knee Discharge Diagnosis: LEFT TOTAL KNEE REPLACEMENT Activity: Per Instructions section Weightbearing Comment: WBAT WITH WALKER Non-emergency contact: Surgeon Call non-emergency contact if: you have any medication questions, your temperature is above 101, your wound has increased redness, your wound has increased drainage and your wound pain has increased Follow-up/Referrals: Devyn Lemus D.O. [Primary Care Provider] - Diet: Regular Addtl Attending Provider Instructions: ACTIVITY RECOMMENDATIONS: SELF CARE INSTRUCTIONS AFTER TOTAL KNEE REPLACEMENT A. You may need to continue a physical therapy program after discharge from the hospital. There are several options available to you. Your doctor will assist you in selecting the best one for you. 1. An out-patient facility 2 to 3 times a week for therapy or home therapy. 2. Continue working on all exercises taught to you in the hospital. Your goals should be to increase bending of your knee to 90 degrees and beyond and to fully straighten your knee. B. You may progress at your own pace from walking with a walker or crutches to a cane; then to no assistive devices. C. Make walking a part of your daily routine. Be up as much as comfortable with rest periods throughout the day. Rest with leg elevation is very important. Use the ice wrap frequently for the first 3-4 weeks. D. There are no restrictions on activities. You may ride in a car, shop, participate in mechanical press operator and all social activities. E. Wear the long elastic stockings (MACARIO hose) 20 hours a day for 2 weeks after surgery. They can be removed several times a day for laundering and for a bath. F. You may shower, no tub baths until cleared by your doctor. SPECIAL CARE INSTRUCTIONS: VERY IMPORTANT TO READ AND REVIEW A. There are a few signs you need to watch for after you are home. Call [facility] if you notice any of the followin. Increased severe knee pain. Some pain is expected especially when you exercise. 2. Increased swelling in your leg or knee; pain or swelling of the calf muscle in either lower leg. 3. Any fluid drainage from the incision. 4. Shortness of breath or chest pain. B. Please call [facility] at if you have any concerns or questions about your operation or recovery. The doctor or his nurse will return your call promptly. C. You must take antibiotics before dental work, bladder, bowel or other surgery. Your doctor will provide you with a permanent care to carry describing this precaution. IMPORTANT: * REMEMBER TO TAKE ASPIRIN, 81 MG, TWICE DAILY FOR 4 WEEKS UNLESS OTHERWISE DIRECTED. THIS IS YOUR BLOOD THINNER. * HIGH RISK PATIENTS MAY BE PRESCRIBED A STRONGER BLOOD THINNER. THIS WILL BE PROVIDED AT DISCHARGE. * CALL IF INCREASED PAIN, REDNESS, DRAINAGE OR FEVER GREATER THAT 101. * WEAR MACARIO HOSE 20 HOURS PER DAY FOR 2 WEEKS. * SUSHANT Dressing- This is a large suction dressing covering your incision. This will help pull any excess drainage from the wound and allow your incision to heal properly. You may shower with this if you can keep the unit outside of the shower. If any bleeding or leakage is noted please call your doctor's office. This will remain on your incision for 7 days and then should be removed. This can be done yourself or by the home nursing staff if applicable. The entire unit is disposable once removed. Once removed, keep incision clean and dry. If redness or drainage is noted, please call your surgeon. ONCE SUSHANT IS REMOVED, FOLLOW THESE INSTRUCTIONS: DERMABOND Prineo- This is a mesh tape dressing that is covered with glue. It should remain in place until the incision is properly healed, usually 10-14 days. This dressing is designed to naturally slough off. You may trim the excess mesh tape as it peels off. Incision may be briefly wet in a shower. Dry immediately by blotting with a clean, dry towel. Do not bath or swim until instructed by your doctor. Do not scratch, rub, or pick at the dressing. Do not apply any topical ointments or lotions until dressing is completely removed and/or instructed by your doctor. There may be a small piece of suture material at one end of your incision. Do not pull or trim this. If it is bothersome or catching on clothing, you may cover it with a band-aid. IF INCISION IS LEAKING THROUGH DRESSING, CALL THE OFFICE . FOLLOW UP VISIT: If appointment is not already scheduled: Please call [facility] to make a follow-up appointment for 2 weeks after your surgery at . Addtl Medical I D Sales Provider Instructions: I have discontinued the celebrex given the rise in your kidney number slightly but this is probably from surgery and you can push oral fluids at home. I would also advise avoiding ibuprofen/aleve as these also work on your kidney. Please use the aspirin as ordered for DVT prophylaxis and use Tylenol and oxycodone as needed for pain control. Pending Studies at Discharge: No Stand-Alone Forms: My [facility], Smoking Cessation Medications and DC Order Prescriptions: New aspirin 81 mg Tablet,Delayed Release (Dr/Ec) 81 mg PO BID Qty: 60 0RF acetaminophen [Tylenol Extra Strength] 500 mg Tablet 1,000 mg PO Q8 Qty: 60 0RF oxycodone 5 mg Tablet 5 - 10 mg PO .Q4h-6h MDD 6 PRN (Reason: pain) Qty: 30 0RF Rx Instructions: Ongoing therapy, Dr. Pride supervising cefadroxil 500 mg capsule 500 mg PO BID Qty: 14 0RF Continued chlorpheniramine maleate 4 mg Tablet 4 mg PO QPM hydroxyzine HCl 50 mg Tablet 50 mg PO HS tamsulosin 0.4 mg Capsule 0.4 mg PO HS metoprolol succinate 25 mg Tablet Extended Release 24 Hr 25 mg PO QPM gabapentin 300 mg Tablet 300 mg PO QAM gabapentin 300 mg Tablet 600 mg PO HS omeprazole 20 mg Tablet,Delayed Release (Dr/Ec) 20 mg PO QAM rosuvastatin 20 mg Capsule, Sprinkle 20 mg PO QPM duloxetine 30 mg Capsule, Delayed Rel Sprinkle 60 mg PO QAM duloxetine 30 mg Capsule, Delayed Rel Sprinkle 30 mg PO QPM ezetimibe 10 mg Tablet 5 mg PO QPM nitroglycerin [Nitrostat] 0.4 mg Tablet, Sublingual 0.4 mg sublingual UD PRN (Reason: Chest Pain) ferrous sulfate 325 mg (65 mg iron) Tablet 325 mg PO Q3D Discontinued aspirin [Aspir-81] 81 mg Tablet,Delayed Release (Dr/Ec) 81 mg PO QPM coQ10 (ubiquinol) 100 mg Capsule 100 mg PO QPM Discharge Orders: Discharge Order (Routine); Ordered 01/01/22 Ordered By: Franki Smallwood/Other Patient Handouts: Tips After Knee Surgery Admission Data Admit Date/Time: 12/31/21 14:32 Attending Provider: Dedrick Marie Admit Provider: Dedrick Marie Primary Care Provider: Devyn Lemus Other Providers: Scar Esteban ; Janay Calderón ; Fernie Marks ; Rolo Nava ; Dedrick Corbin ; Andrew Cherry ; Nehemias Ahumada ; Nasreen Ding ; Nawaf Aguiar ; Shahida Mccracken ; David Koehler ; Harvinder Rodriguez ; Fanny Ferris ; Asia Zafar ; Yolanda Victoria ; Renato Prieto ; Janay Wilson ; Subha Shea ; Brandt Quintanilla ; Fernie Douglas ; Joy Stevenson ; Althea Rob ; Luisito Burch ; Kelly Lveine ; Mickey Tejeda ; Srinivasan Mello ; Jo Ann Hinton ; Duke Landeros ; Twan Willams. Other Interventions: Discharge Summary Assessment (RN) Last Done: 01/01/22 14:43
[2022-01-01] MEDS ORDERED: CeleBREX 200 MG CAP PO SCH (18:00)
== END 2022-01-01 16:58 | disposition home health service (06) ==
LOC: ASU 10:03 → PACUINP 10:03 → 3N 17:34